=== PATIENT | male | born 1985 | race Caucasian/White ===

== ENCOUNTER 2016-08-28 16:47 | Emergency (ER) | payer SELFPAY ==
--- NOTE | 2016-08-28 16:55 | ER Document Report ---
ED Medical Screen (RME) - General Chief Complaint: Toothache Stated Complaint: TOOTHACHE Time seen by provider: 16:53 Mode of Arrival: Ambulatory Information source: Patient Notes: 30-year-old male presents to ED for a toothache upper left jaw. He states his been broken for over a year but has been hurting for months. He states he cannot afford a dentist because they want to do to canals and pull her tooth. He states he [place] a place and then the [place] about 2 weeks. I have greeted and performed a rapid initial assessment of this patient. A comprehensive ED assessment and evaluation of the patient, analysis of test results and completion of medical decision making process will be conducted by an additional ED providers. TRAVEL OUTSIDE OF THE [place] IN LAST 30 DAYS: No - Related Data Allergies/Adverse Reactions: No Known Allergies Allergy (Verified 08/28/16 16:53) Past Medical History - Social History Chew tobacco use (# tins/day): No Frequency of alcohol use: None Drug Abuse: None - Past Medical History Cardiac Medical History: Denies: Hx Coronary Artery Disease, Hx Hypertension Pulmonary Medical History: Denies: Hx Asthma Endocrine Medical History: Denies: Hx Diabetes Mellitus Type 1, Hx Diabetes Mellitus Type 2 Renal/ Medical History: Denies: Hx Peritoneal Dialysis Musculoskeltal Medical History: Denies Hx Arthritis, Reports Hx Muscle Spasm, Denies Hx Musculoskeletal Trauma - Immunizations Immunizations up to date: Yes Hx Diphtheria, Pertussis, Tetanus Vaccination: Yes - TETANUS 2009
--- NOTE | 2016-08-28 19:04 | ER Document Report ---
ED Oral Problem - General Mode of Arrival: Ambulatory Information source: Patient TRAVEL OUTSIDE OF THE [place] IN LAST 30 DAYS: No - HPI Patient complains to provider of: Toothache Onset: Other - 1 month ago Associated symptoms: Other - see above - General Chief Complaint: Toothache Stated Complaint: TOOTHACHE Notes: 30 year old male with history of panic disorder, anxiety, and depression presents to the ED complaining of left upper tooth pain that started 1 month ago. According to [facility] records, patient was seen on 01/05/2013 for the same tooth complaint and was referred to a dentist. Patient explains that he has seen a dentist and they want to do a root canal which he can't afford. Instead, the patient has made an appointment with a dentist in [facility] in 2 weeks to repair his tooth. (SHANE NAVARRO) - Related Data Allergies/Adverse Reactions: acetaminophen [From Vicodin] Adverse Reaction (Verified 08/28/16 19:00) hydrocodone [From Vicodin] Adverse Reaction (Verified 08/28/16 19:00) Past Medical History - General Information source: Patient - Social History Smoking Status: Current Every Day Smoker Chew tobacco use (# tins/day): No Frequency of alcohol use: None Drug Abuse: None Family History: Reviewed & Not Pertinent Patient has suicidal ideation: No Patient has homicidal ideation: No Renal/ Medical History: Denies: Hx Peritoneal Dialysis Musculoskeltal Medical History: Reports Hx Muscle Spasm Psychiatric Medical History: Reports: Hx Anxiety, Hx Depression, Other - Panic disorder Surgical Hx: Negative - Immunizations Immunizations up to date: Yes Hx Diphtheria, Pertussis, Tetanus Vaccination: Yes - TETANUS 2009 Review of Systems - Review of Systems Constitutional: No symptoms reported EENT: See HPI, Other - left upper 1st molar tooth pain Cardiovascular: No symptoms reported Respiratory: No symptoms reported Gastrointestinal: No symptoms reported Genitourinary: No symptoms reported Male Genitourinary: No symptoms reported Musculoskeletal: No symptoms reported Skin: No symptoms reported Hematologic/Lymphatic: No symptoms reported Neurological/Psychological: No symptoms reported -: Yes All other systems reviewed and negative Physical Exam - General General appearance: Alert In distress: None - HEENT Head: Normocephalic, Atraumatic Eyes: Normal Extraocular movements intact: Yes Pupils: PERRL Mouth/Lips: Other - Left upper 1st molar is tender to percussion. It appears that there is prior filling or cap present on this tooth. Left upper 2nd and 3rd molar are missing. There is no gum or facial swelling.. No: Normal - Respiratory Respiratory status: No respiratory distress - Cardiovascular Rhythm: Regular - Abdominal Inspection: Normal - Back Back: Normal - Extremities General upper extremity: Normal inspection, Normal ROM General lower extremity: Normal inspection, Normal ROM - Neurological Neuro grossly intact: Yes - Psychological Associated symptoms: Normal affect, Normal mood - Skin Skin Temperature: Warm Skin Moisture: Dry Skin Color: Normal - Vital signs Vitals: Temp Pulse Resp BP Pulse Ox 97.7 F 87 20 136/81 H 99 08/28/16 16:51 08/28/16 16:51 08/28/16 16:51 08/28/16 16:51 08/28/16 16:51 Discharge - Discharge Clinical Impression: Toothache Additional Instructions: Toothache: Your pain is due to dental decay. The tooth must be repaired in order for you to feel better. You will, therefore, be referred to a dentist. Severe swelling or drainage around a tooth usually means a deep dental abscess. This also requires evaluation and treatment by the dentist, but antibiotics may be prescribed while awaiting dental treatment. You should be rechecked immediately if you develop major swelling of the face, increasing pain, a lump in the jaw or gums, headache, or fever. TAKE THE MEDICATION PRESCRIBED. FOLLOW UP WITH A DENTIST PLANNED. Prescriptions: Oxycodone HCl/Acetaminophen [Percocet 5-325 mg Tablet] 1 tab PO ASDIR PRN #15 tablet PRN Reason: Penicillin V Potassium [Penicillin Vk 500 mg Tablet] 500 mg PO QID #28 tablet Scribe Attestation: 08/28/16 19:07 I personally performed the services described in the documentation, reviewed and edited the documentation which was dictated to the scribe in my presence, and it accurately records my words and actions. (BARBARA NORTH) Scribe Documentation - Scribe Written by Aure:: Aure Mcallister, [id number] acting as scribe for :: Maryjo
[2016-08-28 19:34] VITALS: BP 134/86
== END 2016-08-28 19:15 | disposition home or self-care (01) ==
LOC: ER 16:47
DX: K08.9 Disorder of teeth and supporting structures, unspecified (principal); F17.200 Nicotine dependence, unspecified, uncomplicated; Z88.6 Allergy status to analgesic agent
CPT/HCPCS: 99282

== ENCOUNTER 2018-05-14 16:20 | Emergency (ER) | payer SELFPAY ==
[2018-05-14] MEDS ORDERED: NORMAL SALINE 1000 ML 1,000 ML IV ONE ×2 (16:30→17:51)
--- NOTE | 2018-05-14 16:41 | ER Document Report ---
ED General - General Chief Complaint: Overdose Stated Complaint: POSSIBLE OVERDOSE Time Seen by Provider: 05/14/18 16:26 Information source: Patient Notes: Patient is a 32-year-old male with past medical history according to the patient of fadumo who states he was drinking "all night" with his buddies. Unknown quantity of alcohol. He denies any and all drugs. Patient supposedly came home this morning and went to sleep. Patient states the next thing he remembers is being awoken with EMS. Supposedly EMS provided 2 mg of intranasal Narcan x2 which awoke the patient. Patient denies any symptomatology at this time such as headache, neck pain, chest pain, abdominal pain, weakness or numbness. Patient believes somebody may have "spiked my drink with something". He denies any narcotics, benzodiazepines, or heroin ingestion. He denies any suicidal or homicidal ideations. TRAVEL OUTSIDE OF THE [place] IN LAST 30 DAYS: No - HPI Onset: Other - See above Onset/Duration: Better Quality of pain: Other - See above Severity: Moderate Pain Level: Denies Associated symptoms: Other Exacerbated by: Denies Relieved by: Denies Similar symptoms previously: No - Related Data Allergies/Adverse Reactions: acetaminophen [From Vicodin] Adverse Reaction (Verified 08/28/16 19:00) hydrocodone [From Vicodin] Adverse Reaction (Verified 08/28/16 19:00) Past Medical History - Social History Smoking Status: Unknown if Ever Smoked Family History: Reviewed & Not Pertinent - Past Medical History Cardiac Medical History: Denies: Hx Coronary Artery Disease, Hx Hypertension Pulmonary Medical History: Denies: Hx Asthma Endocrine Medical History: Denies: Hx Diabetes Mellitus Type 1, Hx Diabetes Mellitus Type 2 Renal/ Medical History: Denies: Hx Peritoneal Dialysis Musculoskeletal Medical History: Denies Hx Arthritis, Reports Hx Muscle Spasm, Denies Hx Musculoskeletal Trauma Psychiatric Medical History: Reports: Hx Anxiety, Hx Depression - Immunizations Immunizations up to date: Yes Hx Diphtheria, Pertussis, Tetanus Vaccination: Yes - TETANUS 2010 Review of Systems - Review of Systems Constitutional: denies: Fever EENT: denies: Eye discharge, Nose discharge Respiratory: denies: Short of breath Gastrointestinal: denies: Vomiting Genitourinary: denies: Dysuria Musculoskeletal: denies: Leg swelling Skin: Other - no hives. denies: Rash Neurological/Psychological: Other - no slurred speech -: Yes All other systems reviewed and negative Physical Exam - Vital signs Vitals: Resp BP Pulse Ox 13 146/103 H 98 05/14/18 16:26 05/14/18 16:26 05/14/18 16:26 Notes: Reviewed vital signs and nursing note as charted by RN. CONSTITUTIONAL: Alert and oriented and responds appropriately to questions. Well -appearing; well-nourished HEAD: Normocephalic; atraumatic EYES: Pupils are constricted but reactive. No nystagmus noted ENT: Normal nose; no rhinorrhea; moist mucous membranes; pharynx without lesions noted NECK: Supple without meningismus; non-tender; no cervical lymphadenopathy, no masses CARD: Tachycardic but regular; no murmurs; symmetric distal pulses RESP: Normal chest excursion without splinting or tachypnea; breath sounds clear and equal bilaterally; no wheezes, no rhonchi, no rales ABD/GI: Normal bowel sounds; non-distended; soft, non-tender; no palpable organomegaly or masses BACK: The back appears normal and is non-tender to palpation EXT: Normal ROM in all joints; non-tender to palpation; no edema SKIN: No acute lesions noted NEURO: CN 2-12 intact; 5/5 bilateral upper and lower extremity strength with sensation intact to light touch PSYCH: The patient's mood and manner are appropriate. Grooming and personal hygiene are appropriate. Course - Re-evaluation Re-evalutation: 05/14/18 16:40 Given the history and physical examination we will obtain basic labs, place the patient on the monitor, obtain a drug screen and provide fluids. I do believe that this was a possible drug ingestion. I do not believe that ACS, PE, dissection, or other acute infectious process to be likely. EKG shows a heart of 123, sinus tachycardia, normal axis, narrow QRS, no obvious ST elevation or depression. 05/14/18 16:52 Patient's heart rate is currently 102. Satting 100%. No focal deficits or confusion. Patient has given me permission to talk to mom in the room. Mom states that the patient came home from drinking all evening around 11 AM. At 3 PM she states he came out to the couch and looked a little salazar in the face. She states he knelt down on the floor and put his head on the floor and she thought that he stopped breathing. EMS provided the Narcan with regaining consciousness. Given the above history and physical examination I am concerned about possibly narcotic ingestion. We will observe the patient for at least a 4-hour period with basic labs on the monitor. If the patient has no return to a lethargic state with stable vital signs, patient will be discharged home with substance abuse treatment options. 05/14/18 17:33 Heart rate has improved. Marijuana and opiates are positive. 05/14/18 17:51 Patient has had no somnolence or confusion. I will provide another liter of fluid. With patient's permission I did talk with the patient and the mom. I have explained that I am concerned about possibly having some sort of opioid in the house. Patient adamantly denies this. Mom states she is comfortable taking the patient home and will search the house. I would like to observe the patient for couple more hours here in the emergency department. If patient continues to not be altered, with no deficits, I will provide outpatient treatment options and provide strict return precautions. - Vital Signs Vital signs: Temp Pulse Resp BP Pulse Ox 98 F 17 135/92 H 99 05/14/18 16:31 05/14/18 17:01 05/14/18 17:01 05/14/18 17:01 - Laboratory Result Diagrams: 05/14/18 16:39 05/14/18 16:39 Laboratory results interpreted by me: 05/14/18 05/14/18 16:39 16:39 WBC 11.4 H MCH 34.3 H Chloride 97 L Carbon Dioxide 32 H Glucose 129 H Discharge - Discharge Clinical Impression: Alcohol abuse Drug ingestion, accidental Qualifiers: Encounter type: initial encounter Qualified Code(s): T50.901A - Poisoning by unspecified drugs, medicaments and biological substances, accidental ( unintentional), initial encounter Condition: Good Disposition: HOME, SELF-CARE Additional Instructions: Please refrain from drinking alcohol or using any illicit substances. Please make sure that she follow-up with 1 of the outpatient treatment centers as we have discussed. Come back immediately with any weakness or numbness, change in mental status, difficulty breathing, fevers, vomiting, or any other acute problems.
[2018-05-14 16:54] LABS: ABSOLUTE MONOCYTES (AUTO) 1.4 10^3/uL (0.1-1.4); EOSINOPHILS % (AUTO) 0.2 % (0-6); TOTAL CELLS COUNTED % (AUTO) 100 %
[2018-05-14 17:01] LABS: ABSOLUTE LYMPHOCYTES (AUTO) 1.7 10^3/uL (0.5-4.7); ABSOLUTE NEUT (AUTO) 8.2 10^3/uL (1.7-8.2); ALANINE AMINOTRANSFERASE 59 U/L (21-72); ALBUMIN 4.7 g/dL (3.5-5.0); ALKALINE PHOSPHATASE 90 U/L (38-126); ANION GAP 15 (5-19); ASPARTATE AMINO TRANSFERASE 34 U/L (17-59); BASOPHILS % (AUTO) 0.4 % (0-2); BILIRUBIN,DIRECT 0.3 mg/dL (0.0-0.4); BILIRUBIN,TOTAL 0.5 mg/dL (0.2-1.3); BLOOD UREA NITROGEN 16 mg/dL (7-20); CALCIUM 9.6 mg/dL (8.4-10.2); CARBON DIOXIDE 32 mmol/L (22-30); CHLORIDE 97 mmol/L (98-107); GLUCOSE 129 mg/dL (75-110); HEMATOCRIT 44.8 % (37.9-51.0); HEMOGLOBIN 15.8 g/dL (13.5-17.0); LIPASE 33.6 U/L (23-300); LYMPHOCYTES % (AUTO) 14.7 % (13-45); MEAN CORPUSCULAR HEMOGLOBIN 34.3 pg (27.0-33.4); MEAN CORPUSCULAR HGB CONC 35.4 g/dL (32.0-36.0); MEAN CORPUSCULAR VOLUME 97 fl (80-97); MONOCYTES % (AUTO) 12.4 % (3-13); PLATELET COUNT 221 10^3/uL (150-450); RED BLOOD COUNT 4.62 10^6/uL (4.35-5.55); RED CELL DISTRIBUTION WIDTH 12.8 % (11.5-14.0); SEGMENTED NEUTROPHILS % (AUTO) 72.3 % (42-78); SODIUM 143.8 mmol/L (137-145); TOTAL PROTEIN 7.7 g/dL (6.3-8.2); WHITE BLOOD COUNT 11.4 10^3/uL (4.0-10.5)
[2018-05-14 17:03] LABS: ALCOHOL < 10 mg/dL (NONE DETECTED)
[2018-05-14 17:17] LABS: URINE AMPHETAMINES SCREEN NEGATIVE; URINE BARBITURATES SCREEN NEGATIVE; URINE BENZODIAZEPINES SCREEN NEGATIVE; URINE COCAINE SCREEN NEGATIVE; URINE MARIJUANA (THC) SCREEN UNCONFIRMED POSITIVE; URINE METHADONE SCREEN NEGATIVE; URINE PHENCYCLIDINE SCREEN NEGATIVE
[2018-05-14 19:36] VITALS: BP 126/87
--- NOTE | 2018-05-14 22:45 | EKG REPORT ---
SEVERITY:- OTHERWISE NORMAL ECG - SINUS TACHYCARDIA : Confirmed by: Marilou Muñoz MD 14-May-2018 22:45:31
== END 2018-05-14 19:36 | disposition home or self-care (01) ==
LOC: ER 16:20
DX: T50.901A Poisoning by unspecified drugs, medicaments and biological substances, accidental (unintentional), initial encounter (principal); F10.10 Alcohol abuse, uncomplicated
CPT/HCPCS: 93005; 99285; 96360; 96361; 36415; 80307 ×2; 83690; 85025; 80053; 93010; J7030

== ENCOUNTER 2020-03-09 13:35 | Emergency (ER) | payer SELFPAY ==
[2020-03-09 13:49] VITALS: BP 151/89
--- NOTE | 2020-03-09 14:01 | ER Document Report ---
HPI - HPI Patient complains to provider of: Dental pain Time Seen by Provider: 03/09/20 13:53 Pain Level: 4 Context: 34-year-old male no previous medical problems presents to the emergency room complaining of left upper posterior dental pain for the past 2 days. Denies any trauma or injury. States is been taking ibuprofen without relief last dose at 930 this morning. Also states is tried Orajel without relief. Denies any fevers. States he does not have a dentist. Associated Symptoms: None Exacerbated by: Other - Chewing and eating Relieved by: Denies Similar symptoms previously: No Recently seen / treated by doctor: No - ROS Systems Reviewed and Negative: Yes All other systems reviewed and negative - CONSTITUTIONAL Constitutional: DENIES: Fever - EENT EENT: DENIES: Sore Throat Notes: Dental pain - NEURO Neurology: DENIES: Headache, Weakness - RESPIRATORY Respiratory: DENIES: Trouble Breathing, Coughing - DERM Skin Color: Normal Skin Problems: None Past Medical History - General Information source: Patient - Social History Smoking Status: Current Every Day Smoker Chew tobacco use (# tins/day): No Frequency of alcohol use: Occasional Drug Abuse: None Family History: Reviewed & Not Pertinent - Past Medical History Cardiac Medical History: Denies: Hx Coronary Artery Disease, Hx Hypertension Pulmonary Medical History: Denies: Hx Asthma Endocrine Medical History: Denies: Hx Diabetes Mellitus Type 1, Hx Diabetes Mellitus Type 2 Renal/ Medical History: Denies: Hx Peritoneal Dialysis Musculoskeletal Medical History: Denies Hx Arthritis, Reports Hx Muscle Spasm, Denies Hx Musculoskeletal Trauma Psychiatric Medical History: Reports: Hx Anxiety, Hx Attention Deficit Hyperactivity Disorder, Hx Depression - Immunizations Immunizations up to date: Yes Hx Diphtheria, Pertussis, Tetanus Vaccination: Yes - TETANUS 2010 Vertical Provider Document - CONSTITUTIONAL Agree With Documented VS: Yes Exam Limitations: No Limitations General Appearance: Mild Distress - INFECTION CONTROL TRAVEL OUTSIDE OF THE [place] IN LAST 30 DAYS: No - HEENT HEENT: Atraumatic, Normocephalic. negative: Pharyngeal Tenderness, Pharyngeal Erythema, Tympanic Membrane Red, Tympanic Membrane Bulging Notes: Widespread dental decay. Left upper posterior gum with erythema and swelling. Tender to palpation. Nonfluctuant abscesses noted. - NECK Neck: Normal Inspection, Supple, Thyroid Normal - RESPIRATORY Respiratory: Breath Sounds Normal, No Respiratory Distress. negative: Chest Non-Tender - CARDIOVASCULAR Cardiovascular: No Murmur, Tachycardia - MUSCULOSKELETAL/EXTREMETIES Musculoskeletal/Extremeties: FROM, Non-Tender - NEURO Level of Consciousness: Awake, Alert, Appropriate Motor/Sensory: No Motor Deficit, No Sensory Deficit - DERM Integumentary: Warm, Dry, No Rash Course - Re-evaluation Re-evalutation: 03/09/20 13:58 Reviewed diagnosis with patient. Counseled on soft diet. Antibiotics as prescribed. Continue with ibuprofen as needed for pain. Counseled on the importance of outpatient follow-up with a dentist. Provided with dental clinic information. Patient was given strict return to the emergency room guidelines. Return for any new or worsening symptoms. All questions were answered. Patient verbalized understanding and agrees with plan of care. 03/09/20 14:42 - Vital Signs Vital signs: Temp Pulse Resp BP Pulse Ox 98.2 F 104 H 16 151/89 H 98 03/09/20 13:47 03/09/20 13:47 03/09/20 13:47 03/09/20 13:47 03/09/20 13:47 Discharge - Discharge Clinical Impression: Pain, dental, Dental abscess Condition: Stable Disposition: HOME, SELF-CARE Instructions: Dental Infection or Abscess (OM), Penicillin V K (OM), T oothache ([facility]) Additional Instructions: Continue with ibuprofen as needed for pain. Antibiotics as prescribed. Outpatient follow-up with a dentist as discussed. Return to emergency room for any new or worsening symptoms. Prescriptions: Penicillin V Potassium [Penicillin Vk 500 mg Tablet] 500 mg PO QID #40 tablet Referrals: [facility] [Provider Group] - Follow up in 3-5 days (Call this week for an outpatient follow-up appointment.)
== END 2020-03-09 14:03 | disposition home or self-care (01) ==
LOC: ER 13:35
DX: K04.7 Periapical abscess without sinus (principal); K02.9 Dental caries, unspecified; K08.89 Other specified disorders of teeth and supporting structures; F17.200 Nicotine dependence, unspecified, uncomplicated
CPT/HCPCS: 99283